=== PATIENT | male | born 1995 ===

== ENCOUNTER 2016-09-18 10:22 | Emergency (ER) | payer OTHER ==
--- NOTE | 2016-09-18 11:37 | RAD ---
INDICATION: RIGHT hand pain; stepped on by cow. COMPARISON: None. TECHNIQUE: AP and lateral hand views RIGHT hand. REPORT: Negative for fracture or malalignment. If you've the growth plates remain incompletely closed within normal limits. Soft tissue swelling most prominent at the second finger at the level of the proximal interphalangeal joint. IMPRESSION: Soft tissue swelling without evidence for fracture or malalignment.
[2016-09-18] MEDS ORDERED: Acetaminophen TAB* 325 MG PO ONE (11:38)
[2016-09-18] MEDS: Ibuprofen TAB* 600 MG PO ONE ×2 (11:58→12:07)
--- NOTE | 2016-09-18 12:18 | UC ---
Hand/Wrist HPI - HPI Summary HPI Summary: 21 yo male was stepped on by cow this am c/o right MF pain - History Of Current Complaint Chief Complaint: UCUpperExtremity Stated Complaint: HAND INJURY Time Seen by Provider: 09/18/16 11:11 Hx Obtained From: Patient Onset/Duration: Sudden Onset Severity Initially: Moderate Severity Currently: Moderate Pain Intensity: 6 Pain Scale Used: 0-10 Numeric Character Of Pain: Aching, Throbbing Aggravating Factor(s): Movement, Lifting Alleviating: Rest, Elevation Associated Signs And Symptoms: Positive: Swelling, Bruising Related History: Occupational Injury, Dominant Hand Right - Allergies/Home Medications Allergies/Adverse Reactions: Allergies Allergy/AdvReac Type Severity Reaction Status Date / Time No Known Allergies Allergy Verified 09/18/16 11:07 PMH/Surg Hx/FS Hx/Imm Hx Previously Healthy: Yes - Family History Known Family History: Negative: Cardiac Disease, Hypertension, Diabetes - Social History Alcohol Use: None Substance Use Type: None Smoking Status (MU): Never Smoked Tobacco - Immunization History Most Recent Tetanus Shot: UTD Review of Systems Constitutional: Negative Skin: Bruising Eyes: Negative ENT: Negative Respiratory: Negative Cardiovascular: Negative Gastrointestinal: Negative Genitourinary: Negative Motor: Negative Neurovascular: Negative Musculoskeletal: Negative Neurological: Negative Psychological: Negative All Other Systems Reviewed And Are Negative: Yes Physical Exam Triage Information Reviewed: Yes Appearance: Well-Appearing, No Pain Distress, Well-Nourished Vital Signs: Initial Vital Signs Temp 99.9 F 09/18/16 10:57 Pulse 65 09/18/16 10:57 Resp 16 09/18/16 10:57 BP 129/78 09/18/16 10:57 Pulse Ox 100 09/18/16 10:57 Vital Signs Reviewed: Yes Eyes: Positive: Conjunctiva Clear ENT: Positive: Hearing grossly normal. Negative: Nasal congestion, Nasal drainage, Trismus, Muffled/hoarse voice Neck: Positive: Supple Respiratory: Positive: Lungs clear, Normal breath sounds, No respiratory distress Cardiovascular: Positive: RRR, No Murmur Musculoskeletal: Positive: Other: - see image Neurological: Positive: Alert Psychological Exam: Normal Skin Exam: Normal Hand/Wrist Course/Dx - Differential Dx/Diagnosis Provider Diagnoses: right middle finger contusion Discharge - Discharge Plan Condition: Stable Disposition: HOME Prescriptions: Ibuprofen TAB* [Motrin TAB*] 600 mg PO QID PRN #40 tab PRN Reason: Pain Patient Education Materials: Contusion in Adults (ED) Print Language: MEXICAN Referrals: No Primary Care Phys,NOPCP [Primary Care Provider] - Additional Instructions: splint for comfort elevate ice recheck for worsening symptoms recheck in 2 weeks if not better Images Hands: 1 - swollen/ecchymotic. nail intact- no subungual hematoma
[2016-09-18 12:59] VITALS: BP 114/68
== END 2016-09-18 13:10 | disposition home or self-care (01) ==
LOC: UCEAST 10:22
DX: S60.031A Contusion of right middle finger without damage to nail, initial encounter (principal); W55.29XA Other contact with cow, initial encounter; Y93.9 Activity, unspecified; Y92.79 Other farm location as the place of occurrence of the external cause; Y99.0 Civilian activity done for income or pay
CPT/HCPCS: 99203; A9270-GY; G0463